=== PATIENT | male | born 1980 | race Asian ===

== ENCOUNTER 2017-11-18 19:03 | Emergency (ER) | payer BC ==
[~2017-11-18] VITALS: Ht 180.3 cm; Wt 67.1 kg
[2017-11-18 19:26] VITALS: Ht 180.3 cm; Wt 67.1 kg
[2017-11-18 22:25] VITALS: BP 120/77
== END 2017-11-18 22:47 | disposition home or self-care (01) ==
LOC: ED 19:03
DX: S00.81XA Abrasion of other part of head, initial encounter (principal); R51 Headache; M54.2 Cervicalgia; Y04.8XXA Assault by other bodily force, initial encounter; Y93.89 Activity, other specified; Y92.89 Other specified places as the place of occurrence of the external cause; Y99.8 Other external cause status